=== PATIENT | female | born 2005 | race Hispanic/Latino ===

== ENCOUNTER 2024-07-17 08:38 | Emergency (ER) | payer OTHER ==
[~2024-07-17] VITALS: Ht 160 cm; Wt 59.9 kg
[2024-07-17 08:48] VITALS: TEMP 98.6
[2024-07-17 09:22] LABS: BASOPHILS # (AUTO) 0.1 (0.0-0.1); BASOPHILS % 0.5 % (0.0-1.0); EOSINOPHILS # (AUTO) 0.1 (0.0-0.4); EOSINOPHILS % 0.5 % (0.0-6.0); HEMOGLOBIN 13.8 g/dL (12.0-16.0); LYMPHOCYTES # (AUTO) 2.3 (1.0-3.2); LYMPHOCYTES % 19.6 % (18.0-39.1); MEAN CORPUSCULAR HEMOGLOBIN 29.7 pg (28-32); MEAN CORPUSCULAR HGB CONC 33.7 g/dL (31-35); MEAN CORPUSCULAR VOLUME 88.4 fL (81-99); MONOCYTES # (AUTO) 0.8 (0.2-0.8); MONOCYTES % 6.4 % (4.4-11.3); NEUTROPHILS # (AUTO) 8.5 (2.1-6.9); NEUTROPHILS % 72.7 % (38.7-80.0); PLATELET COUNT 285 x10e3/uL (140-360); RED BLOOD COUNT 4.64 x10e6/uL (3.6-5.1); RED CELL DISTRIBUTION WIDTH 13.2 % (11.7-14.4); WHITE BLOOD COUNT 11.71 x10e3/uL (4.8-10.8)
[2024-07-17] MEDS: SODIUM CHLORIDE 0.9% 1000ML 1,000 ML IV STA (09:31)
[2024-07-17] MEDS: ONDANSETRON HCL INJ 2MG/ML 2ML 2 MG/ML VIAL IV STA (09:31)
[2024-07-17 09:41] LABS: ALANINE AMINOTRANSFERASE 13 IU/L (0-55); ALBUMIN 4.2 g/dL (3.5-5.0); ALBUMIN/GLOBULIN RATIO 1.2 (0.8-2.0); ALKALINE PHOSPHATASE 55 IU/L (40-150); ANION GAP 14.7 mmol/L (8-16); BILIRUBIN,TOTAL 0.5 mg/dL (0.2-1.2); BLOOD UREA NITROGEN 11 mg/dL (7-26); BUN/CREATININE RATIO 13 (6-25); CALCIUM 9.5 mg/dL (8.4-10.2); CARBON DIOXIDE 19 mmol/L (22-29); CHLORIDE 109 mmol/L (98-107); CREATININE, SERUM 0.82 mg/dL (0.57-1.11); EST GLOMERULAR FILTRATION RATE 106 ML/MIN (>=60); GLUCOSE 93 mg/dL (74-118); MAGNESIUM 2.1 MG/DL (1.3-2.1); POTASSIUM 3.7 mmol/L (3.5-5.1); SODIUM 139 mmol/L (136-145); TOTAL PROTEIN 7.7 g/dL (6.5-8.1)
[2024-07-17 10:02] LABS: THYROID STIMULATING HORMONE 0.826 uIU/mL (0.350-4.940); TROPONIN I < 0.001 ng/mL (0-0.300)
[2024-07-17 10:31] VITALS: PULSE 77; RESP 16; O2SAT 100
== END 2024-07-17 10:35 | disposition home or self-care (01) ==
LOC: ER 08:44
DX: R00.2 Palpitations (principal); R07.89 Other chest pain; R11.2 Nausea with vomiting, unspecified; T43.225A Adverse effect of selective serotonin reuptake inhibitors, initial encounter; F41.9 Anxiety disorder, unspecified; F32.A Depression, unspecified
CPT/HCPCS: 36415; 71045; 80053; 83735; 84443; 84484; 84702; 85025; 85379; 93005; 99283; J2405; J7030